=== PATIENT | female | born 1990 | race Caucasian/White ===

== ENCOUNTER 2017-02-28 09:01 | Emergency (ER) | payer OTHER ==
[2017-02-28 09:12] VITALS: BMI 27.1
[2017-02-28 09:13] VITALS: RESP 18; TEMP 97.6; O2SAT 100
[2017-02-28] MEDS ORDERED: Sodium Chloride 0.9% 1,000 ML IV STA (09:14)
--- NOTE | 2017-02-28 09:17 | ED PDOC ---
Arrival/HPI - General Time Seen by Provider: 02/28/17 09:07 Historian: Patient - History of Present Illness Narrative History of Present Illness (Text): 02/28/17 09:15 27yo female who present with complaint of suprapubic abdominal pain and vaginal bleeding since this morning. she notes that her LMP was 11/30/16. She have her first appointment with her OB on 03/09/17. Started having pain with pinkish discharge earlier this morning, but bleeding became heavier. Denies fever, chills, nausea, vomiting, urinary symptoms, any other complaint. Past Medical History - Provider Review Nursing Documentation Reviewed: Yes Family/Social History - Physician Review Nursing Documentation Reviewed: Yes Family/Social History: Unknown Family HX Allergies/Home Meds Allergies/Adverse Reactions: Allergies No Known Allergies Allergy (Verified 02/28/17 09:12) Home Medications: Home Meds Medication Instructions Recorded Confirmed Vit Calc,Iron,Folic 1 tab PO DAILY 02/28/17 02/28/17 [ Vitamins] Review of Systems - Physician Review All systems were reviewed & negative as marked: Yes - Review of Systems Constitutional: Normal Eyes: Normal ENT: Normal Respiratory: Normal Cardiovascular: Normal Gastrointestinal: Abdominal Pain. absent: Constipation, Diarrhea, Nausea, Vomiting, Hematochezia, Hematemesis Genitourinary Female: Vaginal Bleeding Musculoskeletal: Normal Skin: Normal Neurological: Normal Endocrine: Normal Hemo/Lymphatic: Normal Psychiatric: Normal Physical Exam Vital Signs Reviewed: Yes Vital Signs Temp Pulse Resp BP Pulse Ox 02/28/17 10:45 73 18 146/70 100 02/28/17 09:10 97.6 F 79 18 122/72 100 Temperature: Afebrile Blood Pressure: Normal Pulse: Regular Respiratory Rate: Normal Appearance: Positive for: Well-Appearing, Non-Toxic, Comfortable Pain Distress: None Mental Status: Positive for: Alert and Oriented X 3 - Systems Exam Head: Present: Atraumatic, Normocephalic Pupils: Present: PERRL Extroacular Muscles: Present: EOMI Conjunctiva: Present: Normal Mouth: Present: Moist Mucous Membranes Neck: Present: Normal Range of Motion Respiratory/Chest: Present: Clear to Auscultation, Good Air Exchange. No: Respiratory Distress, Accessory Muscle Use Cardiovascular: Present: Regular Rate and Rhythm, Normal S1, S2. No: Murmurs Abdomen: Present: Tenderness (Suprapubic tenderness), Normal Bowel Sounds, Other (soft). No: Distention, Peritoneal Signs, Rebound, Guarding, McBurney's Point Tender, Rovsing's Sign Present Genitourinary/Pelvic Exam: Present: Cervical os Closed Back: Present: Normal Inspection Upper Extremity: Present: Normal Inspection. No: Cyanosis, Edema Lower Extremity: Present: Normal Inspection. No: Edema Neurological: Present: GCS=15, CN II-XII Intact, Speech Normal Skin: Present: Warm, Dry, Normal Color. No: Rashes Psychiatric: Present: Alert, Oriented x 3, Normal Insight, Normal Concentration Medical Decision Making ED Course and Treatment: 02/28/17 19:43 PT in ED for stated history. She was hemodynamically stable. Lab was reviewed with beta of 1409.20. Transvaginal US - [place] gestational sac noted withinin the endocervical region. Without pole. suggests ongoing . Result was DW the pt in detail. She was given a copy of her lab with the beta and strongly advised to f/u with her OB for a repeat beta. She was advised to return to ED for the repeat beta if she can't see her OB within a week. - Lab Interpretations Lab Results: 02/28/17 09:25 02/28/17 09:25 Lab Results 02/28/17 10:59: Blood Type Confirm A POSITIVE 02/28/17 09:25: Blood Type A POSITIVE, Antibody Screen Negative, BBK History Checked No verified bt 02/28/17 09:25: Beta HCG, Quant 1409.20 H 02/28/17 09:25: Sodium 142, Potassium 3.8, Chloride 106, Carbon Dioxide 24, Anion Gap 16, BUN 8, Creatinine 0.6 L, Est GFR ( Amer) > 60, Est GFR (Non -Af Amer) > 60, Random Glucose 98, Calcium 9.1, Total Bilirubin 0.3, AST 31, ALT 34, Alkaline Phosphatase 50, Total Protein 7.4, Albumin 4.3, Globulin 3.1, Albumin/Globulin Ratio 1.4 02/28/17 09:25: PT 11.2, INR 1.02, APTT 30.6 02/28/17 09:25: WBC 6.4, RBC 4.42, Hgb 12.5, Hct 37.4, MCV 84.6, MCH 28.3, MCHC 33.4, RDW 13.3, Plt Count 226, MPV 9.1, Gran % 71.5 H, Lymph % (Auto) 19.7 L, [place] % (Auto) 6.1 H, Eos % (Auto) 2.4, Baso % (Auto) 0.3, Gran # 4.55, Lymph # 1.3, [place] # 0.4, Eos # 0.2, Baso # 0.02 02/28/17 09:12: Urine Color Yellow, Urine Appearance Turbid, Urine pH 6.5, Ur Specific [place] 1.020, Urine Protein Negative, Urine Glucose (UA) Negative, Urine Ketones Negative, Urine Blood Large H, Urine Nitrate Negative, Urine Bilirubin Negative, Urine Urobilinogen 0.2, Ur Leukocyte Esterase Negative, Urine RBC Tntc, Urine WBC Negative, Ur Epithelial Cells 0 - 2, Urine HCG, Qual Positive - RAD Interpretation Radiology Orders: 02/28/17 09:13 OB TRANSVAGINAL [US] Stat - Medication Orders Current Medication Orders: Discontinued Medications Sodium Chloride (Sodium Chloride 0.9%) 1,000 mls @ 999 mls/hr IV .Q1H1M STA Stop: 02/28/17 10:14 Last Admin: 02/28/17 09:26 Dose: 999 mls/hr eMAR Start Stop Document 02/28/17 09:26 YP (Rec: 02/28/17 09:30 YP [id number]) Intravenous Solution Start Date 02/28/17 Start Time 09:26 End Date 02/28/17 End time 10:26 Total Infusion Time 60 Disposition/Present on Arrival - Present on Arrival Any Indicators Present on Arrival: No History of DVT/PE: No History of Uncontrolled Diabetes: No Urinary Catheter: No History of Decub. Ulcer: No History Surgical Site Infection Following: None - Disposition Have Diagnosis and Disposition been Completed?: Yes Diagnosis: Miscarriage Disposition: HOME/ ROUTINE Disposition Time: 10:50 Patient Plan: Discharge Condition: FAIR Discharge Instructions (ExitCare): Spontaneous Miscarriage (ED) Additional Instructions: Follow up with your OB in 48hrs for a repeat beat Return to ED for any new or worsening symptoms Referrals: PCP,NO [Primary Care Provider] - Follow up with primary [facility] [Outside] - Follow up with primary Forms: [employer] (Maltese)
[2017-02-28 09:53] LABS: BASO # 0.02 K/mm3 (0.0-2.0); BASO % 0.3 % (0.0-3.0); EOS # 0.2 (0.0-0.7); EOS % 2.4 % (1.5-5.0); GRAN # 4.55 (1.4-6.5); GRAN % 71.5 % (50.0-68.0); HEMATOCRIT 37.4 % (36.0-48.0); LYMPH # 1.3 (1.2-3.4); LYMPH % 19.7 % (22.0-35.0); MEAN CELL VOLUME 84.6 fl (80.0-105.0); MEAN CORPUSCULAR HEMOGLOBIN 28.3 pg (25.0-35.0); MEAN CORPUSCULAR HGB CONC 33.4 g/dl (31.0-37.0); MEAN PLATELET VOLUME 9.1 fl (7.0-11.0); MONO # 0.4 (0.1-0.6); MONO % 6.1 % (1.0-6.0); RED CELL DISTRIBUTION WIDTH 13.3 % (11.5-14.5); WHITE BLOOD COUNT 6.4 10^3/ul (4.5-11.0)
[2017-02-28 09:54] LABS: ALB/GLOB RATIO 1.4 (1.1-1.8); ALKALINE PHOSPHATASE 50 U/L (38-126); ALT/SGPT 34 U/L (7-56); AST/SGOT 31 U/L (14-36); BILIRUBIN,TOTAL 0.3 mg/dL (0.2-1.3); BLOOD UREA NITROGEN 8 mg/dL (7-21); CALCIUM 9.1 mg/dL (8.4-10.5); CARBON DIOXIDE 24 mmol/L (21-33); CHLORIDE 106 mmol/L (98-107); GFR AFRICAN-AMERICAN > 60; GLUCOSE,RANDOM 98 mg/dL (70-110); POTASSIUM 3.8 mmol/L (3.6-5.0); SODIUM 142 mmol/L (132-148); TOTAL PROTEIN 7.4 g/dL (5.8-8.3)
[2017-02-28 10:00] LABS: PH,URINE 6.5 (4.7-8.0); URINE BILIRUBIN NEGATIVE (NEGATIVE); URINE BLOOD LARGE (NEGATIVE); URINE GLUCOSE (UA) NEGATIVE (NEGATIVE); URINE KETONE NEGATIVE (NEGATIVE); URINE LEUKOCYTE ESTERASE NEGATIVE Leu/uL (NEGATIVE); URINE PROTEIN NEGATIVE mg/dL (<30 mg/dL); URINE UROBILINOGEN 0.2 E.U./dL (<1 E.U./dL)
[2017-02-28 10:02] LABS: URINE APPEARANCE TURBID (CLEAR); URINE COLOR YELLOW (YELLOW)
[2017-02-28 10:02] LABS: INR 1.02 (0.93-1.08); PARTIAL THROMBOPLASTIN TIME 30.6 Seconds (25.1-36.5)
[2017-02-28 10:20] LABS: URINE EPITHELIAL CELLS 0 - 2 /hpf (0-5); URINE RBC TNTC /hpf (0-2); URINE WBC NEGATIVE /hpf (0-6)
--- NOTE | 2017-02-28 10:30 | US ---
HISTORY: /bleeding COMPARISON: None available. TECHNIQUE: Transvaginal pelvic ultrasound was performed. FINDINGS: UTERUS: Measures 10.3 x 4.6 x 6.3 cm. The uterus is bulky and retroverted. No fibroid or other mass lesion seen. ENDOMETRIUM: Measures 24 mm in diameter. Unremarkable. CERVIX: There is an oblong gestational sac within the endocervical canal. No evidence of yolk sac or pole. RIGHT OVARY: Measures 2.8 x 1.5 x 3.6 cm. No solid mass. Normal flow. LEFT OVARY: Measures 2.9 x 3.4 x 2.7 cm. No solid mass. Normal flow. FREE FLUID: There is small amount of echogenic fluid in the cul de. OTHER FINDINGS: None. IMPRESSION: [place] gestational sac within the endocervical canal and hemorrhagic fluid in the cul de sac with patient's clinical history of heavy vaginal bleeding are concerning for in progress. Findings were discussed with JASON Iverson on 02/28/2017 at 10:25 a.m.
[2017-02-28 10:51] VITALS: BP 146/70; PULSE 73
== END 2017-02-28 11:15 | disposition home or self-care (01) ==
LOC: ED 09:01
DX: O03.9 Complete or unspecified spontaneous abortion without complication (principal)
CPT/HCPCS: 76817; 80053; 81001; 84702; 84703; 85025; 85610; 85730; 86850; 86900; 96360; 99285; J7040

== ENCOUNTER 2017-03-02 10:28 | Emergency (ER) | payer OTHER ==
[2017-03-02 10:29] VITALS: BMI 27.1
[2017-03-02] MEDS ORDERED: Sodium Chloride 0.9% 500 ML IV STA (10:46)
--- NOTE | 2017-03-02 10:47 | ED PDOC ---
Arrival/HPI - General Chief Complaint: Female Genitourinary Time Seen by Provider: 03/02/17 10:45 Historian: Patient - History of Present Illness Narrative History of Present Illness (Text): 03/02/17 27yo female , LNMP 11/30/16, present with complaint of suprapubic abdominal pain worsen since last night. Pt reports, was seen here in ED 2 days ago when diagnosed with miscarriage. Pt admits, vaginal bleeding improved compare to 2 days ago. pain is localized over suprapubic area, non-radiating. Otherwise, pt denies fever, chills, headache, dizziness, neck pain, CP, SOB, dsypnea, diaphoresis, V/D, back pain. Ambulate to Ed for evaluation, not in any apparent distress. Pt admits, has scheduled [facility] appointment for 03/09/17, " cant wait, pain worsen". Past Medical History - Provider Review Nursing Documentation Reviewed: Yes - Travel History Have you recently traveled outside [place] w/in the past 3 mons?: No - Infectious Disease Hx of Infectious Diseases: None - Tetanus Immunization Tetanus Immunization: Unknown - Psychiatric Hx Substance Use: No - Surgical History Hx Section: Yes (X2) - Anesthesia Hx Anesthesia: Yes Hx Anesthesia Reactions: No Family/Social History - Physician Review Nursing Documentation Reviewed: Yes Family/Social History: No Known Family HX Smoking Status: Never Smoked Hx Alcohol Use: No Hx Substance Use: No Allergies/Home Meds Allergies/Adverse Reactions: Allergies No Known Allergies Allergy (Verified 03/02/17 10:40) Home Medications: Home Meds Medication Instructions Recorded Confirmed Vit Calc,Iron,Folic 1 tab PO DAILY 02/28/17 03/02/17 [ Vitamins] Review of Systems - Review of Systems Constitutional: Normal Eyes: Normal ENT: Normal Respiratory: Normal Cardiovascular: Normal Gastrointestinal: Abdominal Pain. absent: Nausea, Vomiting Genitourinary Female: Dysuria, Vaginal Bleeding Musculoskeletal: Normal Skin: Normal Neurological: Normal Endocrine: Normal Hemo/Lymphatic: Normal Psychiatric: Normal Physical Exam Vital Signs Temp Pulse Resp BP Pulse Ox 03/02/17 12:32 71 18 105/74 97 03/02/17 10:43 97.9 F 76 16 103/70 97 Temperature: Afebrile Blood Pressure: Normal Pulse: Regular Respiratory Rate: Normal Appearance: Positive for: Well-Appearing, Non-Toxic, Comfortable Pain Distress: None Mental Status: Positive for: Alert and Oriented X 3 - Systems Exam Head: Present: Normocephalic Conjunctiva: Present: Normal Mouth: Present: Moist Mucous Membranes. No: Drooling Pharnyx: No: ERYTHEMA, EXUDATE, TONSILS ENLARGED Neck: Present: Trachea Midline. No: JVD Respiratory/Chest: Present: Clear to Auscultation, Good Air Exchange. No: Respiratory Distress, Accessory Muscle Use Cardiovascular: Present: Regular Rate and Rhythm, Normal S1, S2. No: Murmurs Abdomen: Present: Tenderness (mild suprapubic tenderness), Normal Bowel Sounds. No: Distention, Peritoneal Signs, Rebound, Guarding Back: No: CVA Tenderness Upper Extremity: Present: Normal ROM Lower Extremity: Present: Normal ROM. No: Edema, CALF TENDERNESS Neurological: Present: GCS=15, Speech Normal Skin: Present: Warm, Dry, Normal Color. No: Rashes Psychiatric: Present: Alert, Oriented x 3, Normal Insight, Normal Concentration Medical Decision Making ED Course and Treatment: 03/02/17 12:50 Pt was OBS in ED for 2 hours and remained stable. On re-evaluation, pt is afebrile, hemodynamicaly stable. non-toxic. Tolerate PO well in ED. neck: Supple, (-) JVD, (-) meningeal sign. ENT: no acute findings Lungs: CTA B/L, BS equal B/L. Abd: benign, (-) guarding, (-) rebound, (-) localized tenderness. Back: (-) CVA tenderness. Blood work review, no acute leukocytosis, no left shift. BETA QUANT 200 compare to 1409 from 02/28/17. Blood type: O positive US results review and compare to previous study from 02/28/17 and c/w incomplete . UA results (+) nitrates. Abx given, Cx- pending. Pt advised on course of ds. ref. to f/u with [facility] in 2-3 days for re-eval. return to ED if any worsening or new changes. - Lab Interpretations Lab Results: 03/02/17 11:06 Lab Results 03/02/17 11:13: Urine Color Yellow, Urine Appearance Sl cloudy, Urine pH 7.5, Ur Specific [place] 1.015, Urine Protein Trace H, Urine Glucose (UA) Negative, Urine Ketones Negative, Urine Blood Large H, Urine Nitrate Positive H, Urine Bilirubin Negative, Urine Urobilinogen 0.2, Ur Leukocyte Esterase Small H, Urine RBC 0 - 2, Urine WBC 2 - 5, Ur Epithelial Cells 6 - 8, Urine Bacteria Many , Urine HCG, Qual Positive 03/02/17 11:06: Blood Type A POSITIVE, Antibody Screen Negative, BBK History Checked Patient has bt 03/02/17 11:06: Beta HCG, Quant 200.90 H 03/02/17 11:06: WBC 6.2, RBC 4.41, Hgb 12.4, Hct 37.7, MCV 85.5, MCH 28.1, MCHC 32.9, RDW 13.5, Plt Count 235, MPV 9.1, Gran % 69.2 H, Lymph % (Auto) 21.6 L, [place] % (Auto) 6.3 H, Eos % (Auto) 2.6, Baso % (Auto) 0.3, Gran # 4.30, Lymph # 1.3, [place] # 0.4, Eos # 0.2, Baso # 0.02 Interpretation: No clinic. lab abnormalty - RAD Interpretation Radiology Orders: 03/02/17 10:46 OB TRANSVAGINAL [US] Stat Creator : Kaila Nettles Dictator : Kaila Nettles Re Recording Mixer : Medical Imaging Tech : Kaila Nettles Approver2 : Report Date : 03/02/2017 13:00:45 My Comment : HISTORY: bleeding 27-year-old female LMP 11/30/2016 COMPARISON: Transvaginal ultrasound 02/28/2017 TECHNIQUE: Transvaginal technique utilized. FINDINGS: UTERUS: Measures 8.4 x 7.7 x 5.0 cm. Normal size- retro flexed No fibroidor other seen. No intra uterine body or fundal level gestational sac identified. The prior oblong empty gestational sac within the endocervical canal the prior hemorrhagic fluid in the cul-de-sac appears smaller now measuring 1.1 x 0.8 cm. In the context of a prior positive test and had the prior vaginal bleeding combined studies are consistent with an incomplete in progress. . No more echogenic appearing retained products of conception seen. Within the gestational sac no intrauterine embryo or yolk sac is identified ENDOMETRIUM: Measures 8.4 mm in diameter. This is less than before CERVIX: As above RIGHT OVARY: Measures 2.5 x 2.3 x 1.4 cm. No solid mass. Normal flow. LEFT OVARY: Measures 2.8 x 2.4 x 2.2 cm. No solid mass. Normal flow. FREE FLUID: Currently no pelvic free fluid noted OTHER FINDINGS: None. IMPRESSION: The endocervical canal empty gestational sac is smaller in size compared to the prior exam. Given the supporting history, findings consistent with an incomplete in progress. Interval resolution of the prior cul-de-sac fluid - Medication Orders Current Medication Orders: Discontinued Medications Sodium Chloride (Sodium Chloride 0.9%) 500 mls @ 1,000 mls/hr IV .Q30M STA Stop: 03/02/17 11:15 Ceftriaxone Sodium (Rocephin 1 Gram Ivpb) 1 gm in 100 mls @ 200 mls/hr IVPB STAT STA PRN Reason: Protocol Stop: 03/02/17 12:11 Last Admin: 03/02/17 12:37 Dose: 200 mls/hr eMAR Start Stop Document 03/02/17 12:37 ROMERO (Rec: 03/02/17 12:38 [facility]ERO [id number]) Intravenous Solution Start Date 03/02/17 Start Time 12:38 Disposition/Present on Arrival - Present on Arrival Any Indicators Present on Arrival: No History of DVT/PE: No History of Uncontrolled Diabetes: No Urinary Catheter: No History of Decub. Ulcer: No History Surgical Site Infection Following: None - Disposition Have Diagnosis and Disposition been Completed?: Yes Diagnosis: Incomplete , UTI (urinary tract infection) Disposition: HOME/ ROUTINE Disposition Time: 13:09 Patient Plan: Discharge Condition: STABLE Discharge Instructions (ExitCare): Spontaneous Miscarriage (ED), Urinary Tract Infection in (ED) Print Language: LIBERIAN Additional Instructions: ENCOURAGE FLUIDS CRANBERRY SUPPLEMENT TAKE MEDICATION PRESCRIBED FOLLOW UP WITH [facility]ING [facility]IDE IN 2 DAYS FOR RE-EVALUATION. RETURN TO ED IF ANY WORSENING OR NEW CHANGES. Prescriptions: Cefdinir [Omnicef] 300 mg PO BID #14 cap [facility] [[facility]] - [facility] [place] [Outside] - Follow up with primary Forms: [employer] (Slovenian)
[2017-03-02 11:30] LABS: PH,URINE 7.5 (4.7-8.0); URINE BILIRUBIN NEGATIVE (NEGATIVE); URINE BLOOD LARGE (NEGATIVE); URINE GLUCOSE (UA) NEGATIVE (NEGATIVE); URINE KETONE NEGATIVE (NEGATIVE); URINE LEUKOCYTE ESTERASE SMALL Leu/uL (NEGATIVE); URINE PROTEIN TRACE mg/dL (<30 mg/dL); URINE UROBILINOGEN 0.2 E.U./dL (<1 E.U./dL)
[2017-03-02 11:32] LABS: BASO # 0.02 K/mm3 (0.0-2.0); BASO % 0.3 % (0.0-3.0); EOS # 0.2 (0.0-0.7); EOS % 2.6 % (1.5-5.0); GRAN # 4.3 (1.4-6.5); GRAN % 69.2 % (50.0-68.0); HEMATOCRIT 37.7 % (36.0-48.0); LYMPH # 1.3 (1.2-3.4); LYMPH % 21.6 % (22.0-35.0); MEAN CELL VOLUME 85.5 fl (80.0-105.0); MEAN CORPUSCULAR HEMOGLOBIN 28.1 pg (25.0-35.0); MEAN CORPUSCULAR HGB CONC 32.9 g/dl (31.0-37.0); MEAN PLATELET VOLUME 9.1 fl (7.0-11.0); MONO # 0.4 (0.1-0.6); MONO % 6.3 % (1.0-6.0); RED CELL DISTRIBUTION WIDTH 13.5 % (11.5-14.5); WHITE BLOOD COUNT 6.2 10^3/ul (4.5-11.0)
[2017-03-02 11:36] LABS: URINE APPEARANCE SL CLOUDY (CLEAR); URINE COLOR YELLOW (YELLOW)
[2017-03-02] MEDS ORDERED: cefTRIAXone 1 gm 1 GM/100 ML BAG IVPB STA (11:42)
[2017-03-02 11:46] LABS: URINE BACTERIA MANY (NEG); URINE RBC 0 - 2 /hpf (0-2)
--- NOTE | 2017-03-02 13:02 | US ---
HISTORY: bleeding 27-year-old female LMP 11/30/2016 COMPARISON: Transvaginal ultrasound 02/28/2017 TECHNIQUE: Transvaginal technique utilized. FINDINGS: UTERUS: Measures 8.4 x 7.7 x 5.0 cm. Normal size- retro flexed No fibroidor other seen. No intra uterine body or fundal level gestational sac identified. The prior oblong empty gestational sac within the endocervical canal the prior hemorrhagic fluid in the cul-de-sac appears smaller now measuring 1.1 x 0.8 cm. In the context of a prior positive test and had the prior vaginal bleeding combined studies are consistent with an incomplete in progress. . No more echogenic appearing retained products of conception seen. Within the gestational sac no intrauterine embryo or yolk sac is identified ENDOMETRIUM: Measures 8.4 mm in diameter. This is less than before CERVIX: As above RIGHT OVARY: Measures 2.5 x 2.3 x 1.4 cm. No solid mass. Normal flow. LEFT OVARY: Measures 2.8 x 2.4 x 2.2 cm. No solid mass. Normal flow. FREE FLUID: Currently no pelvic free fluid noted OTHER FINDINGS: None. IMPRESSION: The endocervical canal empty gestational sac is smaller in size compared to the prior exam. Given the supporting history, findings consistent with an incomplete in progress. Interval resolution of the prior cul-de-sac fluid
[2017-03-02 15:07] VITALS: BP 118/59; PULSE 87; RESP 19; TEMP 98.1; O2SAT 92
== END 2017-03-02 13:49 | disposition home or self-care (01) ==
LOC: ED 10:28
DX: O03.4 Incomplete spontaneous abortion without complication (principal); N39.0 Urinary tract infection, site not specified
CPT/HCPCS: 76817; 81001; 84702; 84703; 85025; 86850; 86900; 87086; 87181; 99284; J0696